=== PATIENT | male | born 1955 | race Caucasian/White ===

== ENCOUNTER 2020-08-03 06:26 | Day surgery (SDC) | payer OTHER ==
[2020-08-03] MEDS ORDERED: Sodium Chloride 0.9% 1,000 ML IV SCH (07:15)
[2020-08-03] MEDS ORDERED: Propofol 200 MG/20 ML SDV ONE (07:23)
[2020-08-03] MEDS ORDERED: fentaNYL 100 MCG/2 ML SDV ONE (07:23)
[2020-08-03] MEDS ORDERED: Midazolam 1 MG/ML 2 ML SDV ONE (07:23)
--- NOTE | 2020-08-03 13:45 | OR ---
DATE OF PROCEDURE: 08/03/2020 SURGEON: Alli Julien MD PROCEDURE: Colonoscopy. FINDINGS: Diverticulosis, mild, extending throughout entire colon. COMPLICATIONS: None. CORPORATE ADMINISTRATIVE ASSISTANT: None. ANESTHESIA: MAC. PREOPERATIVE DIAGNOSIS: Screening colonoscopy. POSTOPERATIVE DIAGNOSIS: Screening colonoscopy. RISKS: Risks, benefits, alternatives, and limitations including, but not limited to infection, bleeding, and perforation along with false positives and false negatives were explained to the patient and wished to proceed. PROCEDURE IN DETAIL: The patient was placed in left lateral decubitus position. Digital rectal exam was performed without abnormality. Scope was introduced and advanced atraumatically to the ileocecal valve. A photo was taken of this. Scope was brought back to the ascending, transverse, descending colon, and retroflexed. No evidence of old or new blood. No masses. No polyps. Diverticulosis was described as mild throughout the entire colon but lightly concentrated. No abnormalities on retroflexion. The prep was acceptable. Approximately 90% of the luminal surface could be seen. Some solid and liquid stool remaining. Greater than 8 minutes was spent removing the scope. The patient tolerated the procedure well. Alli Julien MD /[id number]
== END 2020-08-03 09:18 | disposition home or self-care (01) ==
LOC: JP.SDS 06:26
PROVIDERS: ATTEND Surgery
DX: Z12.11 Encounter for screening for malignant neoplasm of colon (principal); K57.30 Diverticulosis of large intestine without perforation or abscess without bleeding; N18.9 Chronic kidney disease, unspecified
CPT/HCPCS: J2250; J2704; J3010; J7030

== ENCOUNTER 2023-01-11 06:12 | Observation (INO) | payer MEDICARE ==
[2023-01-11] MEDS ORDERED: Acetaminophen 500 MG Tab PO ONE (06:30)
[2023-01-11] MEDS ORDERED: Lidocaine 1% with EPINEPHrine 1:100,000 50 ML MDV ONE (06:58)
[2023-01-11] MEDS ORDERED: Bupivacaine 0.5% 50 ML MDV ONE (06:58)
[2023-01-11] MEDS ORDERED: Bupivacaine 0.5%/EPINEPHrine 1:200,000 50 ML MDV ONE (06:58)
[2023-01-11] MEDS ORDERED: Ondansetron 4 MG/2 ML SDV ONE (07:16)
[2023-01-11] MEDS ORDERED: Succinylcholine 200 MG/10 ML MDV ONE (07:16)
[2023-01-11] MEDS ORDERED: Rocuronium 50 MG/5 ML Vial ONE (07:16)
[2023-01-11] MEDS ORDERED: Glycopyrrolate 0.2 MG/ML 5 ML MDV ONE (07:16)
[2023-01-11] MEDS ORDERED: Dexamethasone 4 MG/ML SDV ONE (07:16)
[2023-01-11] MEDS ORDERED: Propofol 200 MG/20 ML SDV ONE ×2 (07:16→10:33)
[2023-01-11] MEDS ORDERED: Neostigmine Methylsulfate 1 MG/ML 5 ML Syringe ONE (07:16)
[2023-01-11] MEDS ORDERED: fentaNYL 250 MCG/5 ML SDV ONE (07:17)
[2023-01-11] MEDS: Lactated Ringers 1,000 ML IV SCH ×2 (07:22→12:53)
[2023-01-11] MEDS ORDERED: ceFAZolin 2 GM in Premix Bag 1 BAG IV ONE (08:00)
[2023-01-11] MEDS ORDERED: ePHEDrine 50 MG/ML SDV ONE (09:06)
[2023-01-11] MEDS ORDERED: Lactated Ringers 1,000 ML ONE (09:14)
[2023-01-11] MEDS ORDERED: fentaNYL 100 MCG/2 ML SDV ONE (10:34)
[2023-01-11] MEDS ORDERED: Acetaminophen/HYDROcodone 325-5 MG Tab PO PRN (12:15)
[2023-01-11] MEDS ORDERED: Ondansetron 4 MG/2 ML SDV IVPUSH PRN (12:15)
[2023-01-11] MEDS ORDERED: Sennosides/Docusate Sodium 50-8.6 MG Tab PO PRN (12:15)
[2023-01-12 05:06] LABS: HEMOGLOBIN 13.9 g/dL (12.9-16.9); MEAN CORPUSCULAR HEMOGLOBIN 30.9 pg (31.6-35.5); MEAN CORPUSCULAR HGB CONC 33.9 g/dL (31.6-35.5); MEAN CORPUSCULAR VOLUME 91.1 fL (81.4-99.0); RED BLOOD CELL COUNT 4.5 M/uL (4.14-5.76); WHITE BLOOD CELL COUNT,WBC 14.4 K/uL (3.2-11.0)
[2023-01-12 05:34] LABS: MAGNESIUM 1.5 mg/dL (1.8-2.4); PHOSPHORUS 3.3 mg/dL (2.5-4.9)
[2023-01-12 05:35] LABS: A/G RATIO 0.9 (1.2-2.2); ALANINE AMINOTRANSFERASE,ALT 25 U/L (12-78); ALKALINE PHOSPHATASE 65 U/L (46-116); ASPARTATE AMNIOTRANSFERASE,AST 14 U/L (15-37); BILIRUBIN TOTAL 0.6 mg/dL (0.2-1.0); BLOOD UREA NITROGEN,BUN 26 mg/dL (7-18); CALCIUM 8.8 mg/dL (8.5-10.1); CARBON DIOXIDE,CO2 24 mmol/L (21-32); CHLORIDE,CL 105 mmol/L (100-108); CREATININE 1.5 mg/dL (0.8-1.3); EST CRCL DRUG DOSING (CG) 50.69 mL/min; ESTIMATED GFR 51 mL/min (>60); GLUCOSE RANDOM 135 mg/dL (74-106); POTASSIUM,K 5.3 mmol/L (3.6-5.2); PROTEIN TOTAL,TP 6.3 g/dL (6.4-8.2); SODIUM,NA 137 mmol/L (140-148)
[2023-01-12 05:45] LABS: ANION GAP 13.3 mmol/L (5.0-14.0)
[2023-01-12 05:50] VITALS: BP 115/77; PULSE 71
[2023-01-12] MEDS ORDERED: Magnesium Sulfate/Water 2 GM in Premix Bag 1 BAG IV ONE (08:30)
[2023-01-12] MEDS ORDERED: Sertraline 50 MG Tab PO SCH (09:00)
== END 2023-01-12 11:22 | disposition home or self-care (01) ==
LOC: JP.SDS 06:12 → JP.MS 12:16
PROVIDERS: ADMIT Student in an Organized Health Care Education/Training Program; ATTEND Student in an Organized Health Care Education/Training Program
DX: K40.31 Unilateral inguinal hernia, with obstruction, without gangrene, recurrent (principal); Q53.10 Unspecified undescended testicle, unilateral; N18.31 Chronic kidney disease, stage 3a; E83.42 Hypomagnesemia; Z79.899 Other long term (current) drug therapy; Z90.49 Acquired absence of other specified parts of digestive tract; Z98.890 Other specified postprocedural states
CPT/HCPCS: 36415; 80053; 83735; 84100; 85027; 88305; A9270-GY; C1781; J0330; J0690; J1100; J2405; J2704; J2710; J3010; J3475; J3490; J7120